=== PATIENT | female | born 1930 | race Caucasian/White ===

== ENCOUNTER 2017-04-03 09:07 | Inpatient (IN) | payer OTHER ==
[~2017-04-03] VITALS: Ht 160 cm; Wt 88.8 kg
[2017-04-03 10:30] LABS: Hematocrit 34.6 % (36.0-46.0); Hemoglobin 11.6 g/dL (12.2-16.2); Mean Corpuscular Hemoglobin 32.3 pg (28.0-32.0); Mean Corpuscular Hgb Conc. 33.5 g/dL (32.0-36.0); Mean Corpuscular Volume 96.3 fL (80.0-100.0); Mean Platelet Volume 6.8 fL (6.9-10.8); Platelet Count (auto) 142 10^3/uL (140-450); Red Cell Distribution Width 16.7 % (11.8-14.3); White Blood Cell 4.6 10^3/uL (4.4-10.8)
[2017-04-03 10:38] LABS: Metamyelocytes % 0; Myelocytes % 0; Promyelocytes % 0; Reactive Lymphocytes 0
[2017-04-03 10:56] LABS: Albumin 2.7 g/dL (3.4-5.0); Alkaline Phosphatase 138 U/L (45-117); Anion Gap 12 (5-15); Aspartate Aminotransferase 36 U/L (15-37); BUN/Creatinine Ratio 25.4; Bilirubin, Total 0.5 mg/dL (0.2-1.0); Blood Urea Nitrogen 35 mg/dL (7-18); Calcium 9.1 mg/dL (8.5-10.1); Carbon Dioxide 21 mmol/L (21-32); Chloride 100 mmol/L (98-107); GFR African American 46 mL/min; GFR Non-African American 38 mL/min; Glucose 77 mg/dL (74-106); Sodium 133 mmol/L (136-145)
[2017-04-03 11:03] LABS: Platelet Estimate Adequate
[2017-04-03] MEDS ORDERED: SODIUM CHLORIDE 0.9% 1,000 ML IV ONE ×3 (11:07→18:00)
[2017-04-03 13:22] LABS: Urine Bilirubin Negative (Negative); Urine Blood TRACE /uL (Negative); Urine Color Yellow (Yellow); Urine Glucose Normal (Normal); Urine Ketone Negative (Negative); Urine Mucus FEW (None Seen); Urine Nitrite Negative (Negative); Urine RBC 7 /hpf (0 - 4); Urine Squamous Epithelial Cell FEW /hpf (<5); Urine Urobilinogen Normal (Negative); Urine pH 5.5 (5.0-8.0)
[2017-04-03] MEDS ORDERED: DEXTROSE (25%) 10 ML SYRG IV ONE (14:30)
[2017-04-03] MEDS ORDERED: NITROGLYCERIN 0.4 MG SL TAB SL PRN (16:45)
[2017-04-03] MEDS ORDERED: MORPHINE SULFATE 10 MG/ML INJ 1ML SDV IV PRN (16:45)
[2017-04-03] MEDS ORDERED: DEXTROSE 50% SYRINGE 50 ML IV ONE (18:09)
[2017-04-03] MEDS ORDERED: DEXTROSE (50%) 50ML SYRG IV ONE (18:30)
[2017-04-03] MEDS ORDERED: ACETAMINOPHEN 325 MG TAB PO PRN (21:30)
[2017-04-03] MEDS: SODIUM CHLORIDE 0.9% 1,000 ML IV SCH (21:30)
[2017-04-03] MEDS ORDERED: DEXTROSE (50%) 50ML SYRG IV PRN (21:30)
[2017-04-03] MEDS: CLINDAMYCIN 900MG IV 50 ML IV SCH (22:09)
[2017-04-03 22:26] VITALS: BP 138/70
[2017-04-04] MEDS ORDERED: GLIM4TAB42 PO (01:51)
[2017-04-04] MEDS ORDERED: LEVEMIR SC (01:51)
[2017-04-04] MEDS ORDERED: ATO40T PO (01:51)
[2017-04-04] MEDS ORDERED: ISOS20TA49 PO (01:51)
[2017-04-04] MEDS ORDERED: LOSA100T27 PO (01:51)
[2017-04-04] MEDS ORDERED: LEVO100T8 PO (01:51)
[2017-04-04] MEDS ORDERED: ASCO100076 PO (01:53)
[2017-04-04 05:41] VITALS: BP 127/68
[2017-04-04 06:07] LABS: Hematocrit 34.3 % (36.0-46.0); Hemoglobin 11.8 g/dL (12.2-16.2); Mean Corpuscular Hemoglobin 33.3 pg (28.0-32.0); Mean Corpuscular Hgb Conc. 34.5 g/dL (32.0-36.0); Mean Corpuscular Volume 96.5 fL (80.0-100.0); Platelet Count (auto) 137 10^3/uL (140-450); Red Cell Distribution Width 17.1 % (11.8-14.3)
[2017-04-04] MEDS: SODIUM CHLORIDE 0.9% 1,000 ML IV SCH ×2 (06:09→17:30)
[2017-04-04] MEDS: CLINDAMYCIN 900MG IV 50 ML IV SCH ×2 (06:09→14:00)
[2017-04-04 06:11] LABS: Metamyelocytes % 0; Myelocytes % 0; Promyelocytes % 0; Reactive Lymphocytes 0
[2017-04-04 06:31] LABS: BUN/Creatinine Ratio 23.6; Calcium 8.7 mg/dL (8.5-10.1); Potassium 4.4 mmol/L (3.5-5.1)
[2017-04-04 06:39] LABS: Anisocytosis Slight; Platelet Estimate Decreased; Polychromasia Slight
[2017-04-04 08:00] VITALS: BP 135/87
[2017-04-04 09:00] VITALS: BP 135/87
[2017-04-04 13:00] VITALS: BP 139/69
[2017-04-04 14:33] VITALS: BP 139/69
[2017-04-04 17:06] VITALS: BP 110/73
== END 2017-04-04 17:31 | disposition home or self-care (01) | DRG 637 ==
LOC: EDBD 09:07 → ER 09:07 → TELE 09:08 → TELE-WESTW 18:45
PROVIDERS: ADMIT Internal Medicine; ATTEND Internal Medicine
DX: E11.649 Type 2 diabetes mellitus with hypoglycemia without coma (principal); G93.41 Metabolic encephalopathy; E44.0 Moderate protein-calorie malnutrition; E11.21 Type 2 diabetes mellitus with diabetic nephropathy; I10 Essential (primary) hypertension; E05.80 Other thyrotoxicosis without thyrotoxic crisis or storm; Z79.4 Long term (current) use of insulin; Z85.828 Personal history of other malignant neoplasm of skin
CPT/HCPCS: 36415; 70450; 71020; 80048; 80053; 80307; 80320; 81001; 82962; 83036; 83735; 84439; 84443; 84484; 85007; 85027; 87081; 87086; 93005; 94761; 96361; 96374; 96376; J3490